=== PATIENT | male | born 1935 | race Asian ===

== ENCOUNTER 2019-11-03 13:34 | Inpatient (IN) | payer OTHER, MEDICAID, SELFPAY ==
[~2019-11-03] VITALS: Ht 162.6 cm; Wt 48.1 kg
[2019-11-03 13:38] VITALS: BP 109/56
--- NOTE | 2019-11-03 13:58 | NUR ---
DR SAPP AT BEDSIDE EXAMINING PT
--- NOTE | 2019-11-03 14:00 | NUR ---
PT BIBA FROM [facility] FOR LOW HEMOGLOBIN. PER EMS HEMOGLOBIN WAS 6.1 WHEN BLOOD WAS DRAWN. PER FACILITY PT IS RECEIVING ZOSYN FOR INCREASED WBC DUE TO UTI. PT PRESENTS CONTRACTED. AFEBRILE UPON ARRIVAL. SKIN WARM, DRY, INTACT. AWAKE, NONVERBAL. PT IS TRACH TO T-BAR ON 6L OXYGEN. RR EVEN AND UNLABORED. POSITIONED FOR COMFORT, X 2 SIDE RAILS RAISED. PLACED ON HOME CARE ATTENDANT, PULSE OX, AND BP CUFF.
[2019-11-03] MEDS ORDERED: METO25TE2 GT ×2 (14:01→22:31)
[2019-11-03] MEDS ORDERED: AMLO10TA GT (14:01)
[2019-11-03] MEDS ORDERED: CLON-553 GT (14:01)
[2019-11-03] MEDS ORDERED: CLON0.2T16 PO (14:01)
[2019-11-03] MEDS ORDERED: ATOR40TA GT (14:01)
[2019-11-03] MEDS ORDERED: HUM SUBQ (14:01)
[2019-11-03] MEDS ORDERED: HEPA500056 SQ (14:01)
[2019-11-03] MEDS ORDERED: LANS15EC28 GT (14:01)
[2019-11-03] MEDS ORDERED: CYCL0.052 BOTH EYES (14:01)
[2019-11-03] MEDS ORDERED: MEMA10TA GT (14:01)
[2019-11-03] MEDS ORDERED: KEP500L PO (14:01)
[2019-11-03] MEDS ORDERED: LEVE1000 GT (14:01)
[2019-11-03] MEDS ORDERED: TAMS0.4C96 GT (14:01)
--- NOTE | 2019-11-03 14:01 | NUR ---
PT TRACH IS SECURED AND INTACT. SET UP COOL AEROSOL 30% 6L. PT IS TOLERATING WELL.
--- NOTE | 2019-11-03 14:05 | NUR ---
URINARY PITT PLACED, 300CC URINE OUTPUT. URINE COLLECTED AND SENT TO LAB.
--- NOTE | 2019-11-03 14:15 | NUR ---
20G IV PLACED TO RT AC, LABS AND CULTURES DRAWN AT THIS TIME
--- NOTE | 2019-11-03 14:20 | NUR ---
COVID-19 SWAB COLLECTED FROM PT AND WALKED TO LAB.
[2019-11-03 14:27] LABS: BASOPHILS % (AUTO) 0.3 % (0.0-2.0); EOSINOPHILS # (AUTO) 1.3 K/uL (0-0.4); EOSINOPHILS % (AUTO) 9.2 % (0.0-4.0); LYMPHOCYTES % (AUTO) 13.7 % (20.5-51.1); MEAN CORPUSCULAR HEMOGLOBIN 26 pg (27-31); MEAN CORPUSCULAR HGB CONC 32 g/dL (33-37); MEAN CORPUSCULAR VOLUME 79.9 fL (80-94); MONOCYTES # (AUTO) 0.7 K/uL (0.8-1.0); MONOCYTES % (AUTO) 4.7 % (1.7-9.3); NEUTROPHILS # (AUTO) 10.5 K/uL (1.8-7.7); NEUTROPHILS % (AUTO) 72.1 % (42.2-75.2); PLATELET COUNT (AUTO) 499 K/uL (140-450); RED BLOOD CELL COUNT(AUTO) 2.43 MIL/uL (4.20-6.10); RED CELL DISTRIBUTION WIDTH 18.7 % (11.6-13.7); WHITE BLOOD COUNT (AUTO) 14.5 K/uL (4.8-10.8)
--- NOTE | 2019-11-03 14:33 | NUR ---
PT TO CT VIA SHAYLA
[2019-11-03 14:40] LABS: HEMATOCRIT 19.4 % (36-52); HEMOGLOBIN 6.2 g/dL (12.0-18.0)
--- NOTE | 2019-11-03 14:41 | NUR ---
HEMOGLOBIN 6.2, HEMATOCRIT 19.4-- CRITICAL LAB VALUES RECEIVED FROM LAB
--- NOTE | 2019-11-03 14:45 | NUR ---
PT RETURNED FROM CT VIA WHEELCHAIR
[2019-11-03 14:46] LABS: APPEARANCE,URINE CLEAR (CLEAR); BILIRUBIN,URINE NEGATIVE (NEGATIVE); BLOOD, URINE 2+ (NEGATIVE); COLOR,URINE YELLOW (YELLOW); LEUKOCYTE ESTERASE ,URINE TRACE (NEGATIVE); NITRITE, URINE NEGATIVE (NEGATIVE); PH,URINE 7.5 (5.0-9.0); UGLUCOSE NEGATIVE (NEGATIVE)
[2019-11-03 14:56] LABS: ANION GAP 12.3 (8-16); CARBON DIOXIDE 30.1 mmol/L (21-32); CHLORIDE 109 mmol/L (98-107); CREATININE 1.2 mg/dL (0.6-1.3); GLUCOSE 133 mg/dL (74-106); POTASSIUM 4.4 mmol/L (3.5-5.1); SODIUM SERUM 147 mmol/L (136-145); UREA NITROGEN, BLOOD 25 mg/dL (7-18)
[2019-11-03 15:00] LABS: PROTHROMBIN TIME 9.9 secs (10.8-13.4)
[2019-11-03 15:02] LABS: ALBUMIN 1.5 g/dL (3.4-5.0); ASPARTATE AMINOTRANSFERASE 122 U/L (15-37); TOTAL BILIRUBIN 0.2 mg/dL (0.0-1.0)
[2019-11-03 15:11] LABS: RBC,URINE 11-20 (MOD) /HPF (0-5)
--- NOTE | 2019-11-03 15:47 | NUR ---
SPOKE TO PTS FAMILY MEMBER-- CALL FOR UPDATES [phone]
[2019-11-03] MEDS ORDERED: DOCUSATE SODIUM 100 MG GELCAP PO PRN (15:50)
[2019-11-03] MEDS ORDERED: ACETAMINOPHEN 325 MG TAB PO PRN (15:50)
[2019-11-03] MEDS ORDERED: ONDANSETRON 4 MG/2 ML VIAL IM/IVP PRN (15:50)
[2019-11-03] MEDS ORDERED: MORPHINE SULFATE 2 MG/ML SYR IVP PRN (15:50)
[2019-11-03] MEDS ORDERED: HYDROcodone/APAP 5/325 MG 1 TAB TAB PO PRN (15:50)
--- NOTE | 2019-11-03 15:58 | NUR ---
VISIBLE RISE AND FALL OF THE CHEST. PT POSITIONED FOR COMFORT. VSS. WILL CONTINUE TO MONITOR
--- NOTE | 2019-11-03 16:10 | NUR ---
PT RESPOSITONED IN BED FOR COMFORT. VSS. WILL CONTINUE TO MONITOR
[2019-11-03 16:19] LABS: BARBITURATE, URINE NEGATIVE ng/ml (NEG <=200); BENZODIAZEPINE, URINE NEGATIVE ng/mL (NEG <=200); CANNABINOID, URINE NEGATIVE ng/mL (NEG <=50); COCAINE, URINE NEGATIVE ng/mL (NEG <=300); OPIATE, URINE NEGATIVE ng/mL (NEG <=2000); PHENCYCLIDINE SCREEN,URINE NEGATIVE ng/mL (NEG <=25)
[2019-11-03 16:32] LABS: MAGNESIUM 2.5 mg/dL (1.8-2.4); PHOSPHORUS 3.3 mg/dL (2.5-4.9); THYROID STIMULATING HORMONE 27.24 uIU/mL (0.34-3.74)
--- NOTE | 2019-11-03 16:39 | NUR ---
ATTEMPTED TO CALL SON FOR CONSENT TO RECEIVE BLOOD, BUT UNABLE TO REACH SON. WILL TRY TO CALL BACK SHORTLY.
--- NOTE | 2019-11-03 17:04 | NUR ---
Consent signed per DR BLAIR agreeing to administration of blood. Blood has been type and crossmatched. Blood sent from blood bank. Information on unit of blood checked against patient wristband at bedside by two nurses. All information matches. Patient or responsible republican informed of potential complications associated with blood transfusion. Informed of possible transfusion reaction symptoms. Aware of need to notify nurse at once of itching, shortness of breath, flushing, feeling of impending doom, or other symptoms not previously present. Vital signs taken within 5 minutes prior to initiation of transfusion. RN will remain with patient for first 15 minutes of transfusion at which time vital signs will be re-assessed.
--- NOTE | 2019-11-03 17:35 | NUR ---
PT TOLERATING BLOOD TRANSFUSION WELL. VSS. WILL CONTINUE TO MONITOR
--- NOTE | 2019-11-03 18:05 | NUR ---
BLOOD CONTINUES TO TRANSFUSE, PT TOLERATING WELL. RR EVEN AND UNLABORED. VSS. WILL CONTINUE TO MONITOR
--- NOTE | 2019-11-03 19:08 | NUR ---
REPORT GIVEN TO ELADIA KEVIN. TRANSFER OF CARE AT THIS TIME
--- NOTE | 2019-11-03 19:08 | NUR ---
RECEIVED REPORT FROM ELADIA MELISSA. WILL CONT CARE AT THIS TIME.
--- NOTE | 2019-11-03 19:13 | NUR ---
BLOOD TRANSFUSION COMPLETED , NADR NOTED . PT VSS . PT RESTING IN BED AT LOWEST POSITION, HOB ELEVATED, SIDE RAIL X2 FOR PT SAFETY.
[2019-11-03] MEDS: NACL 0.9% 1,000 ML IV SCH (19:29)
[2019-11-03 20:20] VITALS: BP 140/76
--- NOTE | 2019-11-03 20:20 | NUR ---
RECEIVED PT FROM SABINA BRAGA - PT IS FROM ER , ON T BAR CONNECTING TO O2 AT 8LPM. APHASIC - RESPONDING BY EYES OPENING TO SOUND AND TOUCH. LOW TAYE SCALE , FALL RISK , IV SITES INTACT AND PATENT , W/ G TUBE - NPO - FOR ABDL. US ABIODUN. W/ FC DRAINING CLAER U.O . SAFETY MEASURES IN PLACE . FOR 2ND UNIT OF PRBC - ONCE THE BLOOD IS AVAILABLE . HE GOT ONE UNIT AT ER - NO BT REACTION NOTED AT THIS TIME. ADMISSION ASSESSMENT DONE - MRSA SPECIMEN - SENT TO LAB . PLAN OF CARE DISCUSSED BUT POOR UNDERSTANDING DUE TO MENTAL STATUS . WILL CONT. TO MONITOR.
--- NOTE | 2019-11-03 20:22 | NUR ---
Patient will be admitted to care of DR. ARENAS. Admited to TELEMETRY. Will go to room 123A. Belongings list completed. Report to SABINA BRAGA RN.
--- NOTE | 2019-11-03 20:22 | NUR ---
endorsed nargis, historical society director to start 2nd unit of blood.
--- NOTE | 2019-11-03 22:00 | NUR ---
MADE ROUNDS . NO S/SX OF ACUTE DISTRESS NOTED AT THIS TIME . WILL CONT. TO MONITOR.
[2019-11-03] MEDS ORDERED: PUL.5N INH (22:31)
[2019-11-03] MEDS ORDERED: MIRABULK GT (22:31)
[2019-11-03] MEDS ORDERED: BUDE1AER2 IH (22:31)
[2019-11-03] MEDS ORDERED: KEP500L GT (22:31)
[2019-11-03] MEDS ORDERED: METPCK GT (22:31)
[2019-11-03] MEDS ORDERED: LANTUS SUBQ (22:31)
[2019-11-03] MEDS ORDERED: MULT-153 GT (22:31)
[2019-11-03] MEDS ORDERED: SCOP1PAT TP (22:31)
[2019-11-03] MEDS ORDERED: LEVA0.6318 INH (22:31)
[2019-11-03] MEDS ORDERED: SODI100076 GT (22:31)
[2019-11-03] MEDS ORDERED: ACET-2619 PO (22:31)
[2019-11-03] MEDS ORDERED: POLYETHYLENE GLYCOL 17 GM/PKT GT PRN (22:40)
[2019-11-03] MEDS ORDERED: PSYLLIUM 12.2 GM/PKT GT PRN (22:40)
[2019-11-03] MEDS ORDERED: MEMANTINE 10 MG TAB GT SCH (22:40)
[2019-11-03] MEDS ORDERED: TAMSULOSIN 0.4 MG CAP GT SCH (22:40)
[2019-11-03] MEDS ORDERED: levETIRAcetam 100 MG/ML ORASYR GT SCH (22:45)
--- NOTE | 2019-11-03 23:00 | NUR ---
NO BT REACTION NOTED AT THIS TIME , O2 SAT WNL . WILL CONT. TO MONITOR.
[2019-11-04] VITALS: BP 136/69
--- NOTE | 2019-11-04 | NUR ---
NO BT REACTION NOTED AT THIS TIME . WILL CONT. TO MONITOR , 02 =SAT WNL
[2019-11-04] MEDS ORDERED: cefTRIAXone 1,000 MG VIAL ONE (01:13)
--- NOTE | 2019-11-04 02:00 | NUR ---
MADE ROUNDS . NO S/SX OF ACUTE DISTRESS NOTED AT THIS TIME . NO BT REACTION NOTED - WILL CONT. TO MONITOR.
[2019-11-04 04:00] VITALS: BP 133/75
--- NOTE | 2019-11-04 04:00 | NUR ---
MADE ROUNDS , NO BT REACTION NOTED AT THIS TIME , NO S/SX OF ACUTE DISTRESS NOTED AT THIS TIME . WILL CONT. TO MONITOR.
[2019-11-04] MEDS ORDERED: metroNIDAZOLE 500 MG/NS PREMIX 100 ML IV SCH (05:00)
[2019-11-04 05:52] LABS: BASOPHILS % (AUTO) 0.3 % (0.0-2.0); EOSINOPHILS # (AUTO) 0.9 K/uL (0-0.4); HEMATOCRIT 29.1 % (36-52); HEMOGLOBIN 9.4 g/dL (12.0-18.0); LYMPHOCYTES # (AUTO) 2.3 K/uL (2.0-11.5); LYMPHOCYTES % (AUTO) 18.3 % (20.5-51.1); MEAN CORPUSCULAR HEMOGLOBIN 27 pg (27-31); MEAN CORPUSCULAR HGB CONC 32 g/dL (33-37); MEAN CORPUSCULAR VOLUME 83.7 fL (80-94); MONOCYTES # (AUTO) 0.8 K/uL (0.8-1.0); MONOCYTES % (AUTO) 6.2 % (1.7-9.3); NEUTROPHILS # (AUTO) 8.5 K/uL (1.8-7.7); NEUTROPHILS % (AUTO) 68.2 % (42.2-75.2); PLATELET COUNT (AUTO) 464 K/uL (140-450); RED BLOOD CELL COUNT(AUTO) 3.48 MIL/uL (4.20-6.10); RED CELL DISTRIBUTION WIDTH 18.1 % (11.6-13.7); WHITE BLOOD COUNT (AUTO) 12.5 K/uL (4.8-10.8)
--- NOTE | 2019-11-04 06:00 | NUR ---
MADE ROUNDS , O2 SAT WNL . NO BT REACTION NOTED , O2 SAT WNL . WILL CONT. TO MONITOR.
[2019-11-04 06:27] LABS: ANION GAP 14.3 (8-16); CARBON DIOXIDE 28.4 mmol/L (21-32); CHLORIDE 108 mmol/L (98-107); CREATININE 1.1 mg/dL (0.6-1.3); GLUCOSE 159 mg/dL (74-106); POTASSIUM 3.7 mmol/L (3.5-5.1); SODIUM SERUM 147 mmol/L (136-145); UREA NITROGEN, BLOOD 19 mg/dL (7-18)
[2019-11-04] MEDS ORDERED: LEVOTHYROXINE 0.05 MG TAB GT SCH (06:30)
[2019-11-04 06:33] LABS: CHOL/HDL RATIO 8.5 (1-4.5)
--- NOTE | 2019-11-04 07:19 | NUR ---
PT CURRENTLY ON COOL AEROSOL. 40% AT 8L. TRACH SECURED AND INTACT. NO DISTRESS NOTED AT THIS TIME. WILL CONTINUE TO MONITOR.
--- NOTE | 2019-11-04 07:20 | NUR ---
ENDORSD TO AM SHIFT - PT - STABLE .
--- NOTE | 2019-11-04 07:20 | NUR ---
RECEIVED BEDSIDE REPORT FROM NIGHTSHIFT NURSE. PT RESTING IN BED. FLACC 0. RESPIRATIONS EVEN AND UNLABORED WITH NO SOB OR RESPIRATORY DISTRESS. SKIN WARM AND DRY TO TOUCH. IV SITE IN RFA 20G AND LFA 24G IS CLEAN, DRY, AND INTACT. SAFETY MEASURES IN PLACE. WILL CONTINUE TO MONITOR
[2019-11-04 08:00] VITALS: BP 138/78
--- NOTE | 2019-11-04 08:53 | NUR ---
PATIENT HAS BEEN SCREENED AND CATEGORIZED HIGH NUTRITION RISK. PATIENT WILL BE SEEN WITHIN 1-2 DAYS OF ADMISSION. 11/04/19-11/05/[address]
[2019-11-04] MEDS: POLYVINYL ALCOHOL 1.4% OP 15 ML SOL BOTH EYES SCH ×2 (09:00→20:02)
[2019-11-04] MEDS: MULTIVITAMIN 1 TAB GT SCH (09:01)
[2019-11-04] MEDS: amLODIPine 5 MG TAB GT SCH (09:01)
[2019-11-04] MEDS: levETIRAcetam 100 MG/ML ORASYR GT SCH ×2 (09:01→20:00)
--- NOTE | 2019-11-04 09:01 | NUR ---
ADMINISTERED SCHED MED PRESCRIBED PER MD ORDER. PT TOLERATED WELL. MEDICATION EDUCATION PERFORMED. PT APHASIC AND UNABLE TO RETURN DEMONSTRATION. SAFETY MEASURES IN PLACE. WILL CONTINUE TO MONITOR
[2019-11-04] MEDS: PANTOPRAZOLE 40 MG INJ VIAL IVP SCH (09:02)
[2019-11-04] MEDS: METOPROLOL SUCCINATE 50 MG TABER PO SCH (09:02)
[2019-11-04 09:23] LABS: TRANSFERRIN 157 mg/dL (149-313)
--- NOTE | 2019-11-04 10:06 | NUR ---
SWABBED PT FOR SECOND COVID SCREENING. PT TOLERATED WELL. SPECIMEN SENT TO LAB. WILL CONTINUE TO MONITOR
--- NOTE | 2019-11-04 10:45 | NUR ---
PT TUBE FEEDS WERE HELD FOR PROCEDURE. PT HAD ABD US SO FEEDS WERE STARTED PRESCRIBED PER MD ORDER. WILL CONTINUE TO MONITOR
--- NOTE | 2019-11-04 11:15 | NUR ---
HOURLY ROUNDING. PT RESTING IN BED. FLACC 0. RESPIRATIONS EVEN AND UNLABORED WITH NO SOB OR RESPIRATORY DISTRESS. SKIN WARM AND DRY TO TOUCH. SAFETY MEASURES IN PLACE. WILL CONTINUE TO MONITOR
[2019-11-04 12:00] VITALS: BP 140/64
--- NOTE | 2019-11-04 12:45 | NUR ---
CONSENT FOR EGD OBTAINED. PT UNABLE TO SIGN FOR THEMSELVES. CALLED SON CLARK [phone] FO CONSENT. SECOND NURSE ELECTRONIC IMAGER. SAFETY MEASURES IN PLACE. WILL CONTINUE TO MONITOR
[2019-11-04] MEDS ORDERED: POTASSIUM CHLORIDE 20% 40 MEQ/15 ML UDC GT SCH (13:00)
[2019-11-04] MEDS ORDERED: FUROSEMIDE 20 MG/2 ML VIAL IVP SCH (13:00)
--- NOTE | 2019-11-04 13:07 | NUR ---
TRIED CALLING ADAM RODAS [phone] FOR CONSENT TO AUTHORIZATION OF MEDICAL RECORDS. CLARK DID NOT ANSWER. CALLED AGAIN AND LEFT VOICE MESSAGE. SAFETY MEASURES IN PLACE. WILL CONTINUE TO MONITOR
--- NOTE | 2019-11-04 13:30 | NUR ---
11/04/19 RD INITIAL ASSESSMENT COMPLETED PLEASE REFER TO NUTRITION ASSESSMENT UNDER CARE ACTIVITY FOR ESTIMATED NUTRITIONAL NEEDS. 1. WHEN MEDICALLY CLEARED CONTINUE GLUCERNA 1.2 @ 55 ML/HR X 24 HOURS -THIS WILL PROVIDE 1584 CALORIES AND 79 GM PROTEIN WHICH MEETS 100% OF ESTIMATED NUTRIENT NEEDS 2. CONTINUE FREE WATER FLUSH OF 100 ML Q6H 3. CONTINUE MULTIVITAMIN WITH VITAMIN C 4. RD TO FOLLOW-UP 2-3 DAYS, HIGH RISK WILLIAN PANIAGUA RD
--- NOTE | 2019-11-04 14:44 | NUR ---
DC PLANNIN YRS OLD MALE PATIENT WAS ADMITTED FROM [facility] WITH A DX OF GI BLEEDING AND SEVER ANEMIA. PATIENT HAS A HX OF CHRONIC RESP FAILURE , T-BAR ,SUBARACHNOID HEMORRHAGE, DM ,HTN, SEIZURE, DEMENTIA G-TUBE FEEDING . H/H 6.1/19.4. CXR SHOWED PROBABLE MODERATE INTERSTITIAL PULMONARY EDEMA. COVID TEST PENDING. CT ABD/PELVICS SHOWED QUESTIONABLE WALL THICKENING. STARTED IVF, IV ABX ROCEPHIN. BLOOD AND URINE CULTURE PENDING . PULMO AND GI DR MOORE CONSULTED. DC PLANNING TO GO BACK TO [facility]. Addendum: 11/08/19 at 1030 by Isidoro Ceron GILBERT FAXED PATIENT'S CLINICAL INFORMATION TO [facility]. GILBERT CONTACTED RITA FROM [facility]. PATIENT WILL RETURN TO ROOM 125A UNDER DR. CAROLANN PATEL. RITA STATED THAT SHE WOULD ARRANGE TRANSPORTATION AND WOULD CALL BACK WITH TRANSPORTATION TIME. GILBERT WILL FOLLOW UP. Addendum: 11/08/19 at 1056 by Isidoro Ceron RITA CONTACTED GILBERT STATING THAT SHE WOULD NOT BE ABLE TO PROVIDE TRANSPORTATION. GILBERT CONTACTED LAM FROM [employer] [phone]. GILBERT ARRANGED FOR TRANSPORTATION AT 1130. GILBERT NOTIFIED NURSE. NO FURTHER NEEDS IDENTIFIED. Addendum: 11/08/19 at 1110 by Isidoro Ceron SS GILBERT CONTACTED LAM FROM [employer] [phone] AND CANCELLED TRANSPORTATION DUE TO INSURANCE. GILBERT CONTACTED SATISH FROM [facility] [phone]. GILBERT ARRANGED FOR TRANSPORTATION TO BE FOR 1200. GILBERT INFORMED [facility] OF TRANSPORTATION TIME. NO FURTHER NEEDS IDENTIFIED.
[2019-11-04 15:12] LABS: FOLIC ACID > 20.00 ng/mL (>3.0)
[2019-11-04 16:00] VITALS: BP 137/69
--- NOTE | 2019-11-04 16:15 | NUR ---
CALLED PT SON CLARK AGAIN FOR CONSENT OF AUTHORIZATION OF MEDICAL RECORDS FOR [facility]. CLARK DID NOT ANSWER. CALLED AGAIN AND LEFT A MESSAGE. SAFETY MEASURES IN PLACE. WILL CONTINUE TO MONITOR
[2019-11-04 16:36] LABS: FERRITIN 1373 ng/mL (30 - 400)
--- NOTE | 2019-11-04 16:57 | NUR ---
PT REMAINS ON COOL AEROSOL 40% AT 8L WITH ADEQUATE AMOUNT OF STERILE WATER. SX PT, THIN YELLOW SECRETIONS. BACTERIAL FILTER CHANGED. NO DISTRESS NOTED AT THIS TIME.
[2019-11-04] MEDS: NACL 0.9% 1,000 ML IV SCH (18:13)
--- NOTE | 2019-11-04 19:00 | NUR ---
RECEIVED BEDSIDE REPORT FROM SEPHORA OPERATIONS CONSULTANT NURSE. DISCUSSED PLAN OF CARE. PT IS SLEEPING IN SEMI FOWLERS POSITION. RESPIRATIONS ARE EVEN AND UNLABORED. CHEST RISE IS SYMMETRICAL. NO SIGNS OF DISTRESS. SEIZURE PRECAUTIONS AND ASPIRATION PRECAUTIONS SIGN IS PLACED ABOVE THE BED. BED IS IN LOWEST POSITION AND CALL LIGHT IS IN REACH.
--- NOTE | 2019-11-04 19:13 | NUR ---
ENDORSED AT BEDSIDE TO NIGHTSHIFT NURSE FOR CONTINUITY OF CARE. PT IS STABLE
[2019-11-04] MEDS: LACTULOSE 20 GM/30 ML UDC ONE ×2 (19:57→20:10)
[2019-11-04 20:00] VITALS: BP 141/68
[2019-11-04] MEDS: TAMSULOSIN 0.4 MG CAP ONE ×2 (20:01→20:11)
[2019-11-04] MEDS: LACTULOSE 20 GM/30 ML UDC PO SCH (20:09)
[2019-11-04] MEDS: TAMSULOSIN 0.4 MG CAP GT SCH (20:12)
[2019-11-04] MEDS ORDERED: ATORVASTATIN 20 MG TAB GT SCH (21:00)
[2019-11-04] MEDS ORDERED: MEMANTINE 10 MG TAB GT SCH (21:00)
--- NOTE | 2019-11-04 22:00 | NUR ---
PT IS SUCTIONED AND ORAL CARE WAS PROVIDED. BREATHING IS REGULAR, EVEN, AND UNLABORED. G TUBE FEEDING IS WELL TOLERATED. PT REPOSITIONED AND SOILED LINENS WERE CHANGED AFTER VOIDING. WILL CONTINUE TO MONITOR.
[2019-11-05] VITALS: BP 142/69
--- NOTE | 2019-11-05 | NUR ---
PT WAS DISCONTINUED FROM TUBE FEEDING TO FOLLOW ORDERS OF NPO AFTER MIDNIGHT. PT IS RECEIVING EGD IN THE MORNING. COVID 19 TEST NUMBER TWO CAME BACK NEGATIVE. PT IS ON TELE MONITORING WITH SINUS TACHYCARDIA.
--- NOTE | 2019-11-05 02:00 | NUR ---
PT IS SLEEPING IN SEMI FOWLERS. RESPIRATIONS ARE EVEN AND UNLABORED. NO SIGNS OF DISTRESS AND NO SOB.
--- NOTE | 2019-11-05 03:55 | NUR ---
PT IS A&O X 1. HE IS LAYING IN HIS BED WITH NO SIGNS OF DISTRESS. CHEST RISE IS SYMMETRICAL. RESPIRATIONS ARE UNLABORED. ORAL CARE WAS PROVIDED. BED IS IN THE LOWEST POSITION WITH THE CALL LIGHT IN REACH. WILL CONTINUE TO MONITOR.
[2019-11-05 04:00] VITALS: BP 113/71
[2019-11-05 05:29] LABS: BASOPHILS # (AUTO) 0.1 K/uL (0.00-0.22); BASOPHILS % (AUTO) 0.7 % (0.0-2.0); EOSINOPHILS # (AUTO) 0.8 K/uL (0-0.4); EOSINOPHILS % (AUTO) 6.8 % (0.0-4.0); HEMATOCRIT 30.3 % (36-52); HEMOGLOBIN 9.9 g/dL (12.0-18.0); LYMPHOCYTES # (AUTO) 2.4 K/uL (2.0-11.5); LYMPHOCYTES % (AUTO) 20.5 % (20.5-51.1); MEAN CORPUSCULAR HEMOGLOBIN 28 pg (27-31); MEAN CORPUSCULAR HGB CONC 33 g/dL (33-37); MEAN CORPUSCULAR VOLUME 83.9 fL (80-94); MONOCYTES # (AUTO) 0.8 K/uL (0.8-1.0); MONOCYTES % (AUTO) 6.4 % (1.7-9.3); NEUTROPHILS # (AUTO) 7.8 K/uL (1.8-7.7); NEUTROPHILS % (AUTO) 65.6 % (42.2-75.2); PLATELET COUNT (AUTO) 466 K/uL (140-450); RED BLOOD CELL COUNT(AUTO) 3.62 MIL/uL (4.20-6.10); RED CELL DISTRIBUTION WIDTH 18.6 % (11.6-13.7); WHITE BLOOD COUNT (AUTO) 11.9 K/uL (4.8-10.8)
[2019-11-05 05:44] LABS: ANION GAP 12.2 (8-16); CARBON DIOXIDE 29.5 mmol/L (21-32); CHLORIDE 108 mmol/L (98-107); CREATININE 1.1 mg/dL (0.6-1.3); GLUCOSE 285 mg/dL (74-106); POTASSIUM 3.7 mmol/L (3.5-5.1); SODIUM SERUM 146 mmol/L (136-145); UREA NITROGEN, BLOOD 20 mg/dL (7-18)
[2019-11-05 05:47] LABS: MAGNESIUM 2.1 mg/dL (1.8-2.4); PHOSPHORUS 3.2 mg/dL (2.5-4.9)
[2019-11-05] MEDS: LEVOTHYROXINE 0.1 MG TAB GT SCH (06:30)
--- NOTE | 2019-11-05 06:51 | NUR ---
PT WILL BE ENDORSED TO THE DAY SHIFT NURSE FOR CONTINUITY OF CARE. NPO FOR EGD. SINUS RHYTHM AND G TUBE IS CLAMPED.
--- NOTE | 2019-11-05 07:11 | NUR ---
RECEIVED BEDSIDE REPORT FROM EMERGENCY VEHICLE DISPATCHER NURSE, FOR CONTINUITY OF CARE. PT IS A&OX1. RESPIRATIONS ARE EVEN AND UNLABORED, BREATHING TRACH TO TBAR @ 8 LPM. SKIN COLOR APPROPRIATE FOR ETHNICITY. LFA 20G IV IS PATENT AND INTACT. RFA 20G IV IS PATENT AND INTACT, TKO. PITT CATHETER IN PLACE. PT IS NPO PENDING EGD SCHEDULED FOR TODAY. REVIEWED PLAN OF CARE, PT IS UNABLE TO COMPREHEND. SAFETY MEASURES IN PLACE; CALL LIGHT WITHIN REACH, BED IN LOW POSITION, SIGNS POSTED. TELE MONITOR ATTACHED. WILL CONTINUE TO MONITOR.
--- NOTE | 2019-11-05 07:26 | NUR ---
SPOKE TO PT'S [id number], JORGE, WHO CALLED ON BEHALF OF THE PT'S BROTHER; FOR UPDATES, CALL: [phone].
[2019-11-05] MEDS ORDERED: fentaNYL 0.05 MG/ML VIAL ONE (08:37)
[2019-11-05] MEDS ORDERED: MIDAZOLAM 2 MG/2 ML VIAL ONE (08:37)
[2019-11-05] MEDS ORDERED: diphenhydrAMINE 50 MG/ML VIAL ONE (08:37)
[2019-11-05] MEDS ORDERED: DEXTROSE 50% 50 ML SYR IVP PRN (08:40)
--- NOTE | 2019-11-05 08:41 | NUR ---
RECEIVED A CALL FROM EMRE FROM [facility] REGARDING ORDERED HIDA SCAN. PER EMRE, A PORTABLE HYDASCAN IS RECOMMENDED BECAUSE OF THE PT'S HIGH O2 REQUIREMENT OF 8LPM, AND THE LENGTH OF THE PROCEDURE. WILL REQUEST APPROVAL FROM NURSING ADMINISTRATION FOR PORTABLE HIDA SCAN.
--- NOTE | 2019-11-05 08:50 | NUR ---
PT ESCORTED OFF UNIT VIA BED BY OR NURSE FOR EGD PROCEDURE.
--- NOTE | 2019-11-05 09:01 | NUR ---
SPOKE TO LONNY REGARDING PORTABLE HIDA SCAN. MOHAMMED AWARE OF PMI SERVICE RECOMMENDATION.
--- NOTE | 2019-11-05 09:17 | NUR ---
PT IS BACK ON UNIT FROM OR. PT IS IN STABLE CONDITION WILL MONITOR VITAL SIGNS. RT TO CONNECT PT TO 02, TO TBAR; CURRENTLY ON O2 TANK.
[2019-11-05] MEDS: PANTOPRAZOLE 40 MG INJ VIAL IVP SCH (10:59)
--- NOTE | 2019-11-05 11:00 | NUR ---
[facility] Patient: Jayy Pop : 1935 Age/Sex: 83/M Unit#: [id number] Room/Bed: 123/A User: Isidoro MISTRY Date: 11/05/19 10:57 Type: CM Discharge Plan Assessment Information Provided By JEFF PACHECO Mattress Specialist, Realtionship and Phone Number CLARK MEDINA [phone] Healthcare Power of Chief Operator Hydroformer No Does Patient Have a POLST No Identifying Problems No Social Work Triggers Is A Social Work Consult Needed No Mandate Report Filed No Explanation Of Identifying Problems PATIENT IS AN 83-YEAR-OL DMALE ADMITTED FOR GI BLEED AND SEVERE ANEMIA. PATIENT HAS PMHX OF CHRONIC RESPIRATORY FAILURE, GTUBE FEEDING, HTN, DYSPHAGIA, DM, HTN, BPH, AND ANEMIA. Admitted From Retirement Facility Retirement Facility [facility] - [phone] Pre-Admission Level Of Functioning Status Total Care Other DME: GERICHAIR Factors/Needs SNF/NH Placement Explanation And Or Other Factors Affecting/Possible DC Needs PATIENT IS USP AND ON BED HOLD. Discharge Plan Comments TENTATIVE DISCHARGE PLAN IS FOR PATIENT TO RETURN TO [facility]. DC Plan Status Initiated
[2019-11-05] MEDS: METOPROLOL SUCCINATE 50 MG TABER PO SCH (11:02)
[2019-11-05] MEDS: LACTULOSE 20 GM/30 ML UDC PO SCH ×2 (11:03→21:47)
[2019-11-05] MEDS: FUROSEMIDE 20 MG/2 ML VIAL IVP SCH (11:03)
[2019-11-05] MEDS: amLODIPine 5 MG TAB GT SCH (11:04)
[2019-11-05] MEDS: MULTIVITAMIN 1 TAB GT SCH (11:04)
[2019-11-05] MEDS: levETIRAcetam 100 MG/ML ORASYR GT SCH ×2 (11:07→21:47)
[2019-11-05] MEDS: POLYVINYL ALCOHOL 1.4% OP 15 ML SOL BOTH EYES SCH ×2 (11:08→21:48)
--- NOTE | 2019-11-05 11:09 | NUR ---
RECEIVED A CALL FROM LAB REPORTING MRSA NARES POSITIVE RESULT. WILL ENACT CONTACT PRECAUTIONS.
[2019-11-05] MEDS: POTASSIUM CHLORIDE 20% 40 MEQ/15 ML UDC GT SCH (11:11)
--- NOTE | 2019-11-05 11:19 | NUR ---
INFORMED RESIDENT OF PT'S MRSA POSITIVE RESULT. SIGN POSTED.
--- NOTE | 2019-11-05 11:27 | NUR ---
G-TUBE ASPIRATED; 0 ML RESIDUAL. SCHEDULED MEDICATIONS GIVEN VIA G-TUBE. MEDICATIONS FLUSHED BEFORE AND AFTER G-TUBE MEDICATION ADMINISTRATION. MEDICATION EDUCATION PROVIDED. PT TOLERATED PO MEDS WELL. BP: 114/82, PULSE: 110. EYE DROPS INSTILLED. NO ACUTE DISTRESS NOTED. TELE MONITOR ATTACHED. SAFETY MEASURES IN PLACE. WILL CONTINUE TO MONITOR.
[2019-11-05] MEDS: BLOOD GLUCOSE MONITORING 1 DEV DEV FS SCH ×3 (11:30→21:51)
[2019-11-05] MEDS: INSULIN LISPRO SLIDING SCALE 100 UNITS/ML VIAL SUBQ PRN ×3 (12:37→21:49)
--- NOTE | 2019-11-05 12:39 | NUR ---
BGL: 230; 4 UNITS COVERAGE GIVEN.
[2019-11-05 16:00] VITALS: BP 117/71
[2019-11-05] MEDS: NACL 0.9% 1,000 ML IV SCH (18:50)
--- NOTE | 2019-11-05 19:00 | NUR ---
IV FLUIDS HUNG, AND RUNNING PER ORDERS. SAFETY MEASURES IN PLACE. TELE MONITOR ATTACHED.
--- NOTE | 2019-11-05 19:27 | NUR ---
ENDORSED TO MANAGER OF CASE NURSE, FOR CONTINUITY OF CARE. PT IS IN STABLE CONDITION.
--- NOTE | 2019-11-05 19:28 | NUR ---
RECEIVED REPORT FROM AM SHIFT NURSE. PATIENT LYING DOWN IN BED . NO DISTRESS NOTED. ON TRACH TO T-TUBE WITH OXYGEN 8L/MIN WITH O2 SAT AT 100%. AAOX1, APHASIC, CALM, COOPERATIVE. BUE/BLE CONTRACTURES NOTED. IV SITE INTACT, PATENT, AND INFUSING IVF PER MD ORDERS. GTUBE SITE INTACT, PATENT, AND ON CONTINOUS GTUBE FEEDING PER MD ORDERS. HAS RIGHT UPPER BACK SKIN TEAR, DRESSING DRY AND INTACT. REVIEWED PLAN OF CARE WITH PATIENT. UNABLE TO COMPREHEND. SAFETY MEASURES IN PLACE, CALL LIGHT WITHIN REACH. WILL CONTINUE TO MONITOR.
[2019-11-05] MEDS: TAMSULOSIN 0.4 MG CAP GT SCH (21:47)
--- NOTE | 2019-11-05 21:51 | NUR ---
PATIENT LYING DOWN IN BED SLEEPING, AROUSABLE BY VOICE. NO DISTRESS NOTED. DENIES ANY PAIN. SCHEDULED MEDICATIONS DUE GIVEN. WILL CONTINUE TO MONITOR.
[2019-11-06] VITALS: BP 125/80
--- NOTE | 2019-11-06 00:10 | NUR ---
PATIENT LYING DOWN IN BED SLEEPING, AROUSABLE BY VOICE. NO DISTRESS NOTED. CONDITION UNCHANGED. WILL CONTINUE TO MONITOR.
--- NOTE | 2019-11-06 03:00 | NUR ---
PATIENT LYING DOWN IN BED SLEEPING, PERFORMED TRACH SUCTIONING. PATIENT TOLERATED WELL. WILL CONTINUE TO MONITOR.
[2019-11-06] MEDS: CHLORHEXADINE GLUC 2% CLOTH TP SCH (04:30)
[2019-11-06] MEDS: MUPIROCIN CA NASAL 2% 1GM TUBE NS SCH (04:30)
--- NOTE | 2019-11-06 05:05 | NUR ---
SCHEDULED MEDICATIONS DUE GIVEN. WILL CONTINUE TO MONITOR.
[2019-11-06] MEDS: LEVOTHYROXINE 0.1 MG TAB GT SCH (05:39)
--- NOTE | 2019-11-06 05:46 | NUR ---
ASSISTED JEWEL WAXER IN CLEANING AND REPOSITIONING PATIENT. SCHEDULED MEDICATIONS DUE GIVEN. WILL CONTINUE TO MONITOR.
[2019-11-06] MEDS: INSULIN LISPRO SLIDING SCALE 100 UNITS/ML VIAL SUBQ PRN ×4 (06:41→21:12)
[2019-11-06] MEDS: BLOOD GLUCOSE MONITORING 1 DEV DEV FS SCH ×4 (06:44→21:13)
[2019-11-06 06:45] LABS: BASOPHILS # (AUTO) 0.1 K/uL (0.00-0.22); BASOPHILS % (AUTO) 0.7 % (0.0-2.0); EOSINOPHILS # (AUTO) 1.1 K/uL (0-0.4); EOSINOPHILS % (AUTO) 9.7 % (0.0-4.0); HEMATOCRIT 31.7 % (36-52); HEMOGLOBIN 10.1 g/dL (12.0-18.0); LYMPHOCYTES # (AUTO) 1.6 K/uL (2.0-11.5); LYMPHOCYTES % (AUTO) 14.2 % (20.5-51.1); MEAN CORPUSCULAR HEMOGLOBIN 27 pg (27-31); MEAN CORPUSCULAR HGB CONC 32 g/dL (33-37); MEAN CORPUSCULAR VOLUME 84.7 fL (80-94); MONOCYTES # (AUTO) 0.6 K/uL (0.8-1.0); MONOCYTES % (AUTO) 5.5 % (1.7-9.3); NEUTROPHILS # (AUTO) 8.1 K/uL (1.8-7.7); NEUTROPHILS % (AUTO) 69.9 % (42.2-75.2); PLATELET COUNT (AUTO) 489 K/uL (140-450); RED BLOOD CELL COUNT(AUTO) 3.75 MIL/uL (4.20-6.10); WHITE BLOOD COUNT (AUTO) 11.6 K/uL (4.8-10.8)
--- NOTE | 2019-11-06 07:19 | NUR ---
GAVE REPORT TO AM SHIFT NURSE FOR CONTINUITY OF CARE. PATIENT IN STABLE CONDITION.
--- NOTE | 2019-11-06 07:20 | NUR ---
RECEIVED BEDSIDE SHIFT REPORT FROM LEAD CASHIER NURSE FOR CONTINUATION OF CARE.
[2019-11-06 08:00] VITALS: BP 144/70
[2019-11-06 08:37] LABS: ANION GAP 12.1 (8-16); CARBON DIOXIDE 27.4 mmol/L (21-32); CHLORIDE 109 mmol/L (98-107); CREATININE 1.3 mg/dL (0.6-1.3); GLUCOSE 290 mg/dL (74-106); POTASSIUM 3.5 mmol/L (3.5-5.1); SODIUM SERUM 145 mmol/L (136-145); UREA NITROGEN, BLOOD 19 mg/dL (7-18)
[2019-11-06 08:38] LABS: ALBUMIN 1.5 g/dL (3.4-5.0); BILIRUBIN,DIRECT 0.1 mg/dL (0.0-0.3); TOTAL BILIRUBIN 0.1 mg/dL (0.0-1.0)
[2019-11-06] MEDS ORDERED: SCOPOLAMINE 1.5 MG/72 HR PATCH TD SCH (09:00)
[2019-11-06 09:52] LABS: PHOSPHORUS 3.5 mg/dL (2.5-4.9)
--- NOTE | 2019-11-06 10:07 | NUR ---
PATIENT IS RESTING IN BED, FIO2 30%, GTUBE FEED RUNNING WELL, TOLERATING WELL. VITAL SIGNS. WILL CONTINUE TO MONITOR.
[2019-11-06] MEDS: POLYVINYL ALCOHOL 1.4% OP 15 ML SOL BOTH EYES SCH ×2 (10:37→20:58)
[2019-11-06] MEDS: LACTULOSE 20 GM/30 ML UDC PO SCH ×2 (10:40→20:59)
[2019-11-06] MEDS: levETIRAcetam 100 MG/ML ORASYR GT SCH ×2 (10:40→20:59)
[2019-11-06] MEDS: POTASSIUM CHLORIDE 20% 40 MEQ/15 ML UDC GT SCH (10:40)
[2019-11-06] MEDS: PANTOPRAZOLE 40 MG INJ VIAL IVP SCH (10:41)
[2019-11-06] MEDS: MULTIVITAMIN 1 TAB GT SCH (10:41)
[2019-11-06] MEDS: FUROSEMIDE 20 MG/2 ML VIAL IVP SCH (10:41)
[2019-11-06] MEDS: METOPROLOL SUCCINATE 50 MG TABER PO SCH (10:41)
[2019-11-06] MEDS: amLODIPine 5 MG TAB GT SCH (10:42)
--- NOTE | 2019-11-06 12:00 | NUR ---
TOLERATED MED PASS, NO SIGNS OF DISTRESS AT THIS TIME. FLACC-O. WILL CONTINUE TO MONITOR.
--- NOTE | 2019-11-06 15:17 | NUR ---
OBSERVED CHEST RISE AND FALL, O2 SAT 100%. SUCTIONED FOR 5 SECONDS, MUCUS SUCTIONED FROM ESOPHAGUS. WILL CONTINUE TO MONITOR.
[2019-11-06 16:00] VITALS: BP 135/72
[2019-11-06] MEDS: NACL 0.9% 1,000 ML IV SCH (17:46)
--- NOTE | 2019-11-06 19:25 | NUR ---
BEDSIDE SHIFT REPORT GIVEN TO BOX FABRICATOR NURSE FOR CONTINUATION OF CARE.
--- NOTE | 2019-11-06 19:26 | NUR ---
RECEIVED BEDSIDE REPORT FROM AM SHIFT NURSE. PATIENT IS LYING IN BED, LEFT SIDE LYING. NO SOB OR DISTRESS NOTED ON 6LPM VIA TRACH TO HUMIDIFIER. IV ACCESS ON RIGHT FOREARM 20 GAUGE, PATENT INTACT AND INFUSING WELL. G-TUBE IN PLACE, PATENT, INTACT AND INFUSING WELL. INITIAL ASSESSMENT DONE. HEEL PROTECTORS IN PLACE. BED IN LOW, BED LOCKED. SAFETY MEASURES IN PLACE. WILL CONTINUE TO MONITOR PATIENT. Addendum: 11/06/19 at 2030 by Brigida Benavidez RN PITT CATHETER IN PLACE. DRAINING LIGHT YELLOW URINE WELL. PATENT AND INTACT.
--- NOTE | 2019-11-06 20:47 | NUR ---
PT SLEEPING COMFORTABLY ON COOL AERO ( 6L 30% ) W/ NO SIGNS OF DISTRESS HR 93 SPO2 100% BS RHONCHI
[2019-11-06] MEDS: TAMSULOSIN 0.4 MG CAP GT SCH (20:59)
--- NOTE | 2019-11-06 22:00 | NUR ---
PATIENT CLEANED WITH RENOVATOR MACHINE OPERATOR. PATIENT NOTED WITH SKIN TEAR ON LEFT BUTTOCKS. SKIN ASSESSMENT, PICTURE TAKEN AND WOUND CARE DONE.
[2019-11-07 00:01] VITALS: BP 141/66
--- NOTE | 2019-11-07 00:01 | NUR ---
VITALS DONE. PATIENT RESTING WITH EYES CLOSED. NO SOB OR DISTRESS NOTED. WILL CONTINUE TO MONITOR PATIENT.
--- NOTE | 2019-11-07 03:13 | NUR ---
ROUNDS DONE. PATIENT RESTING WITH EYES CLOSED. VISIBLE CHEST RISE AND FALL NOTED. WILL CONTINUE TO MONITOR PATIENT.
[2019-11-07] MEDS: MUPIROCIN CA NASAL 2% 1GM TUBE NS SCH (03:36)
[2019-11-07] MEDS: CHLORHEXADINE GLUC 2% CLOTH TP SCH (03:37)
--- NOTE | 2019-11-07 04:45 | NUR ---
MORNING CARE DONE. PATIENT CLEAN, DRY AND COMFORTABLE. NO DISTRESS NOTED. WILL CONTINUE TO MONITOR PATIENT.
[2019-11-07] MEDS: LEVOTHYROXINE 0.1 MG TAB GT SCH (06:06)
[2019-11-07 06:27] LABS: BASOPHILS # (AUTO) 0.1 K/uL (0.00-0.22); BASOPHILS % (AUTO) 0.5 % (0.0-2.0); EOSINOPHILS # (AUTO) 1.1 K/uL (0-0.4); EOSINOPHILS % (AUTO) 7.9 % (0.0-4.0); HEMATOCRIT 31.8 % (36-52); HEMOGLOBIN 10.2 g/dL (12.0-18.0); LYMPHOCYTES # (AUTO) 2.1 K/uL (2.0-11.5); LYMPHOCYTES % (AUTO) 15.4 % (20.5-51.1); MEAN CORPUSCULAR HEMOGLOBIN 27 pg (27-31); MEAN CORPUSCULAR HGB CONC 32 g/dL (33-37); MEAN CORPUSCULAR VOLUME 85.1 fL (80-94); MONOCYTES # (AUTO) 0.7 K/uL (0.8-1.0); MONOCYTES % (AUTO) 5.2 % (1.7-9.3); NEUTROPHILS # (AUTO) 9.5 K/uL (1.8-7.7); PLATELET COUNT (AUTO) 496 K/uL (140-450); RED BLOOD CELL COUNT(AUTO) 3.74 MIL/uL (4.20-6.10); RED CELL DISTRIBUTION WIDTH 18.7 % (11.6-13.7); WHITE BLOOD COUNT (AUTO) 13.4 K/uL (4.8-10.8)
[2019-11-07] MEDS: BLOOD GLUCOSE MONITORING 1 DEV DEV FS SCH ×4 (06:31→21:00)
[2019-11-07] MEDS: INSULIN LISPRO SLIDING SCALE 100 UNITS/ML VIAL SUBQ PRN ×4 (06:33→23:22)
--- NOTE | 2019-11-07 06:36 | NUR ---
PATIENT HAD A BLOOD GLUCOSE OF 233 WITH 4 UNITS OF REGULAR HUMALOG INSULIN ADMINISTERED. WILL CONTINUE TO MONITOR PATIENT.
--- NOTE | 2019-11-07 06:40 | NUR ---
PATIENT IN STABLE CONDITION.. NO DISTRESS NOTED. CALL LIGHT WITHIN PATIENT REACH. WILL ENDORSE TO AM SHIFT NURSE FOR CONTINUITY OF CARE.
[2019-11-07 06:51] LABS: ANION GAP 12.3 (8-16); CARBON DIOXIDE 29.3 mmol/L (21-32); CHLORIDE 105 mmol/L (98-107); GLUCOSE 247 mg/dL (74-106); POTASSIUM 3.6 mmol/L (3.5-5.1); SODIUM SERUM 143 mmol/L (136-145); UREA NITROGEN, BLOOD 20 mg/dL (7-18)
--- NOTE | 2019-11-07 07:30 | NUR ---
RECEIVED BEDSIDE REPORT FROM OPERATIONS ASST NURSE. PATIENT IS LYING IN BED, LEFT SIDE LYING. NO SOB OR DISTRESS NOTED ON 6LPM VIA TRACH TO HUMIDIFIER. IV ACCESS ON RIGHT FOREARM 20 GAUGE, PATENT INTACT AND INFUSING WELL. L FA 24 SALINE LOCKED. G-TUBE IN PLACE, PATENT, INTACT AND INFUSING WELL. PATIENT HAS PITT CATHETER DRAINING TO GRAVITY WITH YELLOW URINE. ISOLATION PRECAUTIONS IN PLACE, HEEL PROTECTORS IN PLACE. BED IN LOW, BED LOCKED. SAFETY MEASURES IN PLACE. WILL CONTINUE TO MONITOR PATIENT.
[2019-11-07 08:00] VITALS: BP 145/68
[2019-11-07] MEDS: POTASSIUM CHLORIDE 20% 40 MEQ/15 ML UDC GT SCH (08:42)
[2019-11-07] MEDS: FUROSEMIDE 20 MG/2 ML VIAL IVP SCH (08:42)
[2019-11-07] MEDS: POLYVINYL ALCOHOL 1.4% OP 15 ML SOL BOTH EYES SCH ×2 (08:42→23:24)
[2019-11-07] MEDS: PANTOPRAZOLE 40 MG INJ VIAL IVP SCH (08:42)
[2019-11-07] MEDS: LACTULOSE 20 GM/30 ML UDC PO SCH ×2 (08:43→23:10)
[2019-11-07] MEDS: METOPROLOL SUCCINATE 50 MG TABER PO SCH (08:43)
[2019-11-07] MEDS: MULTIVITAMIN 1 TAB GT SCH (08:43)
[2019-11-07] MEDS: amLODIPine 5 MG TAB GT SCH (08:43)
[2019-11-07] MEDS: levETIRAcetam 100 MG/ML ORASYR GT SCH ×2 (08:43→23:10)
--- NOTE | 2019-11-07 08:45 | NUR ---
ORDERED MEDICATIONS GIVEN VIA GTUBE WITH 150 ML OF WATER. PATIENT TOLERATED IT. NO S/S OF SOB OR DISTRESS NOTED. PATIENT SUCTIONED WITH MINIMAL THICK SECRETIONS. WILL CONTINUE TO MONITOR PATIENT.
--- NOTE | 2019-11-07 12:36 | NUR ---
BLOOD SUGAR 242, COVERAGE GIVEN. PATIENT TOLERATED IT. PATIENT SUCTIONED WITH MINIMAL THICK SECRETIONS. WILL CONTINUE TO MONITOR PATIENT.
--- NOTE | 2019-11-07 14:33 | NUR ---
11/07/19 RD FOLLOW UP COMPLETED PLEASE REFER TO NUTRITION ASSESSMENT UNDER CARE ACTIVITY FOR ESTIMATED NUTRITIONAL NEEDS. 1. CONTINUE GLUCERNA 1.2 @ 55 ML/HR X 24 HOURS -THIS WILL PROVIDE 1584 CALORIES AND 79 GM PROTEIN WHICH MEETS 100% OF ESTIMATED NUTRIENT NEEDS 2. CONTINUE FREE WATER FLUSH OF 100 ML Q6H 3. CONTINUE MULTIVITAMIN WITH VITAMIN C 4. RD TO FOLLOW-UP 2-3 DAYS, HIGH RISK SONY SAHA, MEE
[2019-11-07 16:00] VITALS: BP 138/68
--- NOTE | 2019-11-07 17:21 | NUR ---
BLOOD SUGAR 268, COVERAGE GIVEN. PATIENT TOLERATED IT. NO COMPLAINTS AT THIS TIME. RESPIRATIONS EVEN AND UNLABORED. WILL CONTINUE TO MONITOR PATIENT.
--- NOTE | 2019-11-07 17:45 | NUR ---
PATIENT SUCTIONED AND ORAL CARE GIVEN. NEW TUBE FEEDING STARTED. PATIENT TOLERATING IT WELL. WILL CONTINUE TO MONITOR PATIENT.
[2019-11-07] MEDS: NACL 0.9% 1,000 ML IV SCH (18:50)
--- NOTE | 2019-11-07 19:25 | NUR ---
REPORT GIVEN TO SUPERVISOR BUFFING AND PASTING NURSE AT BEDSIDE FOR CONTINUITY OF CARE. PATIENT RESTING WITH EYES CLOSED. NO S/S OF DISTRESS OR SOB NOTED.
--- NOTE | 2019-11-07 19:26 | NUR ---
RECD. RESTING IN BED, SLEEPING BUT OCCASIONALLY OPENS EYES WHEN AWAKEN THEN WENT BACK TO SLEEP AGAIN. ON 02 AT 6 LITERS CONNECTED TO TRACH VIA T-BAR. 02 SAT - 99%. WITH BILATERAL UPPER AND LOWER EXTREMITIES CONTRACTED. GT FEEDING OF GLUCERNA AT 55 ML/HR INFUSING, IV OF NS AT TKO INFUSING AT 10 ML/HR. F/C PATENT DRAINING CLEAR YELLOW URINE. WITH BILALTERAL HEEL PROTECTORS IN PLACED. ORIENTED TO HOSPITAL SETTING. NO APPEARANCE OF PAIN NOTED 0/10.
--- NOTE | 2019-11-07 20:48 | NUR ---
WATER CHANGED OUT PT SLEEPING COMFORTABLY W/ NO SIGNS OF DISTRESS SPO2 100% HR 92 COOL AERO 6L 30%
--- NOTE | 2019-11-07 21:30 | NUR ---
RESIDUAL CHECKED - 0, TOLERATING FEEDING WELL.
[2019-11-07] MEDS: TAMSULOSIN 0.4 MG CAP GT SCH (23:10)
[2019-11-07] MEDS: SULFAMETH/TRIMETH DS 800/160MG 1 TAB PO SCH (23:11)
[2019-11-08] VITALS: BP 145/68
--- NOTE | 2019-11-08 | NUR ---
SLEEPING COMFORTABLY IN BED, SUCTIONING DONE X3.
[2019-11-08] MEDS: CHLORHEXADINE GLUC 2% CLOTH TP SCH (05:02)
[2019-11-08] MEDS: MUPIROCIN CA NASAL 2% 1GM TUBE NS SCH (05:02)
[2019-11-08] MEDS: BLOOD GLUCOSE MONITORING 1 DEV DEV FS SCH (06:18)
[2019-11-08] MEDS: LEVOTHYROXINE 0.1 MG TAB GT SCH (06:18)
[2019-11-08] MEDS: INSULIN LISPRO SLIDING SCALE 100 UNITS/ML VIAL SUBQ PRN (06:22)
[2019-11-08 06:45] LABS: BASOPHILS # (AUTO) 0.1 K/uL (0.00-0.22); BASOPHILS % (AUTO) 0.7 % (0.0-2.0); EOSINOPHILS # (AUTO) 0.8 K/uL (0-0.4); EOSINOPHILS % (AUTO) 6.5 % (0.0-4.0); HEMOGLOBIN 10.8 g/dL (12.0-18.0); LYMPHOCYTES # (AUTO) 3.1 K/uL (2.0-11.5); LYMPHOCYTES % (AUTO) 25.5 % (20.5-51.1); MEAN CORPUSCULAR HEMOGLOBIN 28 pg (27-31); MEAN CORPUSCULAR HGB CONC 33 g/dL (33-37); MEAN CORPUSCULAR VOLUME 84.7 fL (80-94); MONOCYTES # (AUTO) 0.9 K/uL (0.8-1.0); MONOCYTES % (AUTO) 7.3 % (1.7-9.3); NEUTROPHILS # (AUTO) 7.2 K/uL (1.8-7.7); PLATELET COUNT (AUTO) 536 K/uL (140-450); RED BLOOD CELL COUNT(AUTO) 3.89 MIL/uL (4.20-6.10); RED CELL DISTRIBUTION WIDTH 19.1 % (11.6-13.7); WHITE BLOOD COUNT (AUTO) 12.1 K/uL (4.8-10.8)
--- NOTE | 2019-11-08 07:00 | NUR ---
CONDITION REMAIN STABLE. SUCTIONED X 1 MODERATE PHLEGM.WILL ENDORSE TO AM SHIFT NURSE FOR CONTINUITY OF CARE.
[2019-11-08 07:02] LABS: ANION GAP 13.8 (8-16); CARBON DIOXIDE 28.9 mmol/L (21-32); CHLORIDE 105 mmol/L (98-107); CREATININE 1.1 mg/dL (0.6-1.3); GLUCOSE 273 mg/dL (74-106); POTASSIUM 3.7 mmol/L (3.5-5.1); SODIUM SERUM 144 mmol/L (136-145); UREA NITROGEN, BLOOD 21 mg/dL (7-18)
[2019-11-08] MEDS: POLYVINYL ALCOHOL 1.4% OP 15 ML SOL BOTH EYES SCH (08:28)
--- NOTE | 2019-11-08 08:29 | NUR ---
MED SCANNER NOT WORKING REPORTED TO IT,
--- NOTE | 2019-11-08 08:30 | NUR ---
RECEIVED REPORT FROM ELADIA EPPS FOR CONTINUITY OF CARE. PATIENT ALERT AWAKE, APHASIC NOT IN ANY DISTRESS NOTED. VITALS STABLE. ON TRACH TO T-PIECE SATURATION 100%, ON 6L.DUE MEDICATIONS GIVEN AND TOLERATED WELL. WILL CONTINUE TO MONITOR.
[2019-11-08] MEDS: levETIRAcetam 100 MG/ML ORASYR GT SCH (08:31)
[2019-11-08] MEDS: POTASSIUM CHLORIDE 20% 40 MEQ/15 ML UDC GT SCH (08:33)
[2019-11-08] MEDS: MULTIVITAMIN 1 TAB GT SCH (08:34)
[2019-11-08] MEDS: SULFAMETH/TRIMETH DS 800/160MG 1 TAB PO SCH (08:34)
[2019-11-08] MEDS: PANTOPRAZOLE 40 MG INJ VIAL IVP SCH (08:34)
[2019-11-08] MEDS: LACTULOSE 20 GM/30 ML UDC PO SCH (08:35)
[2019-11-08] MEDS: METOPROLOL SUCCINATE 50 MG TABER PO SCH (08:39)
[2019-11-08] MEDS: FUROSEMIDE 20 MG/2 ML VIAL IVP SCH (08:40)
[2019-11-08] MEDS: amLODIPine 5 MG TAB GT SCH (08:50)
[2019-11-08 08:56] VITALS: BP 137/66
--- NOTE | 2019-11-08 09:04 | NUR ---
pT EYES CLOSE ON TRACH TO O2 30 PERCENT WELL TOLERATED, NO SOB NOTED, SKIN WARM TO TOUCH RESP. EVEN AND UNLABORED, GT INTACT NO RESIDUAL NOTED, HOB UP IV SITE ON RIGHT FOREARM , INTACT, PITT CATH DRAINING TO A KA[place]LYNN URINE.
--- NOTE | 2019-11-08 10:27 | NUR ---
WITH D/C ORDER BACK TO [facility], NOTIFIED ADAM RODAS REGARDING PLAN FOR TODAY DISCHARGE. WILL FOLLOW UP WITH INFRASTRUCTURE PROJECT MANAGER.
--- NOTE | 2019-11-08 10:37 | NUR ---
RECEIVED ON A COOL AEROSOL ON AND FUCTIONING WELL AT 30%/6 LPM TO A PORTEX DCT #7 AIRWAY SECURED WITH A TRACH TIE RESTING WEILL WITHOUT SOB NOTED GOOD CHEST RISE DEEP TRACHEAL SUCTION FOR LARGE THICK LEE SECRETIONS AIRWAY PATENT CHANGED AEROSOL WATER, HUMIDIFIER BARREL AND INLINE SUCTION CATHETER Addendum: 11/08/19 at 1056 by Carlos Drew RT SATURATION 98% ON FIO2 OF 30% TITRATED FIO2 TO 30%
[2019-11-08] MEDS ORDERED: MUPI2CRE22 NS (10:48)
[2019-11-08] MEDS ORDERED: SULF-47 PO (10:48)
[2019-11-08] MEDS ORDERED: SYN.1 GT (10:48)
[2019-11-08] MEDS ORDERED: CHLO118S2 TP (10:48)
[2019-11-08] MEDS ORDERED: SULF-47 GT (10:52)
--- NOTE | 2019-11-08 10:55 | NUR ---
WOUND CARE EVALUATION NOTE: REASON FOR EVALUATION: LOW TAYE SCALE AND OPEN WOUNDS WOUND ASSESSMENT DONE ON THIS 84 Y/O MALE PATIENT ADMITTED TO [facility] FROM [facility] WITH INITIAL DIAGNOSIS OF ABNORMAL LABS. PAST MEDICAL HISTORY INCLUDE CHRONIC RESP FAILURE, SUBARACHNOID HEMORRHAGE, DM, HTN, ANEMIA, SEIZURE AND DEMENTIA. ALL ABOVE INFORMATION WAS OBTAINED FROM THE ADMISSION H&P. PATIENT WITH UPPER AND LOWER EXTREMITIES CONTRACTED, MULTIPLE HEALED SCARS TO SACRAL AND BUTTOCKS AREAS.SKIN WARM TO TOUCH,TOENAILS ARE SHORT AND THICKENED, NO HAIR GROWTH, PT IS INCONTINENT OF BOWEL DURING ASSESSMENT. PLAN OF CARE DISCUSSED WITH PRIMARY RN INTEGUMENTARY: -TRACH AND GT SITES NELIDA-STOMA SKIN DRY AND INTACT -INCONTINENT ASSOCIATE DERMATITIS TO LEFT BUTTOCK SITE #1 1X0.5CM, SUPERFICIAL DEPTH, AND SITE #2 2X2.5CM SUPERFICIAL DEPTH WOUND BED RED, NO ODOR. NELIDA-WOUND SKIN INTACT WITH HEALED SCARS. -RIGHT UPPER LATERAL BACK SKIN TEAR PARTIAL THICKNESS SKIN LOSS, SITE #1 1X1.3CM SUPERFICIAL DEPTH, SITE # 2 2.7X3 CM SUPERFICIAL DEPTH, WOUND BED ARE 100% GRANULATING TISSUE MOIST. NO ODOR, NELIDA-WOUND SKIN INTACT, VERSATEL IN PLACE AND REINFORCED -RIGHT BUTTOCK 1X1CM SERUM FILLED BLISTER SKIN INTACT, NELIDA WOUND SKIN INTACT -SACRALCOCCYX, LEFT AND RIGHT HEELS BLANCHABLE REDNESS, SKIN INTACT RECOMMENDATIONS: -CLEANSE LEFT BUTTOCK IAD WITH SOAP AND WATER, PAT DRY, APPLY Z-GUARD AND COVER WITH FOAM DRESSING QD AND PRN IF SOILING -CLEANSE RIGHT UPPER BACK SKIN TEARS, RIGHT BUTTOCK BLISTER WITH NS. PAT DRY, APPLY VERSATEL DRESSING AND CHANGE Q5 DAYS AND PRN IF SOILING, MONITOR DRESSING PLACEMENT Q SHIFT -APPLY FOAM DRESSING TO BILATERAL SHINS /KNEES AND HEELS QD PREVENTION -TURN AND REPOSITION PATIENT Q 2H, KEEP SKIN DRY AND CLEAN -ASSESS AND MONITOR SKIN CONDITION DURING POSITION CHANGE -OFFLOAD BILATERAL HEELS BY PLACING PILLOWS UNDER CALVES AT ALL TIMES, UNLESS OTHERWISE CONTRAINDICATED -PRESSURE REDISTRIBUTION SURFACE THERAPY -CONTINUE TO FOLLOW RD RECOMMENDATION RECOMMENDATIONS DISCUSSED WITH PRIMARY RN WILL FOLLOW UP PATIENT Q7- 10 DAYS AND PRN. PLEASE CONTACT WOUND CARE NURSE FOR ANY CONCERNS, QUESTIONS AND CHANGES IN SKIN CONDITION.
[2019-11-08] MEDS ORDERED: Z-GUARD PASTE TP PRN (11:15)
--- NOTE | 2019-11-08 12:00 | NUR ---
REPORT GIVEN TO ELADIA PRIETO AT [facility] [place], ALL QUESTIONED ANSWER. WILL CONTINUE TO MONITOR.
--- NOTE | 2019-11-08 12:20 | NUR ---
DISCHARGE VIA [facility]. REPORT GIVEN AT BEDSIDE, IN STABLE CONDITION.
[2019-11-08] MEDS ORDERED: Z-GUARD PASTE TP SCH (13:00)
[2019-11-08] MEDS ORDERED: FOAM DRESSING TP SCH (13:00)
== END 2019-11-08 12:15 | DRG 177 ==
LOC: MED 13:34 → EEVIPCON 13:34 → UNDOADMIN 15:48 → MTU 15:48
PROVIDERS: ADMIT General Practice; ATTEND General Practice
PROC: 30233N1 Transfusion of Nonautologous Red Blood Cells into Peripheral Vein, Percutaneous Approach (ICD-10-PCS; principal; 2019-11-03)
PROC: 0DJ08ZZ Inspection of Upper Intestinal Tract, Via Natural or Artificial Opening Endoscopic (ICD-10-PCS; 2019-11-05)
DX: J69.0 Pneumonitis due to inhalation of food and vomit (principal); E43 Unspecified severe protein-calorie malnutrition; J96.21 Acute and chronic respiratory failure with hypoxia; I50.43 Acute on chronic combined systolic (congestive) and diastolic (congestive) heart failure; N39.0 Urinary tract infection, site not specified; Z68.1 Body mass index [BMI] 19.9 or less, adult; K92.2 Gastrointestinal hemorrhage, unspecified; E87.0 Hyperosmolality and hypernatremia; G93.40 Encephalopathy, unspecified; Z20.828 Contact with and (suspected) exposure to other viral communicable diseases; E11.9 Type 2 diabetes mellitus without complications; N40.0 Benign prostatic hyperplasia without lower urinary tract symptoms; K21.9 Gastro-esophageal reflux disease without esophagitis; R13.10 Dysphagia, unspecified; K80.80 Other cholelithiasis without obstruction; G40.909 Epilepsy, unspecified, not intractable, without status epilepticus; F03.90 Unspecified dementia, unspecified severity, without behavioral disturbance, psychotic disturbance, mood disturbance, and anxiety; E78.5 Hyperlipidemia, unspecified; D50.0 Iron deficiency anemia secondary to blood loss (chronic); D47.3 Essential (hemorrhagic) thrombocythemia; E86.0 Dehydration; E83.41 Hypermagnesemia; E03.9 Hypothyroidism, unspecified; I11.0 Hypertensive heart disease with heart failure; B96.89 Other specified bacterial agents as the cause of diseases classified elsewhere; Z79.4 Long term (current) use of insulin; Z79.899 Other long term (current) drug therapy; Z93.0 Tracheostomy status; Z93.1 Gastrostomy status
CPT/HCPCS: 36415; 51702; 71045; 76705; 78445; 80048; 80053; 80076; 80305; 81001; 82272; 82607; 82728; 82746; 82948; 83036; 83540; 83605; 83690; 83735; 83880; 84100; 84439; 84443; 84484; 85025; 85045; 85610; 85730; 86886; 86900; 86901; 86920; 87040; 87070; 87081; 87086; 87186; 87205; 93005; 99291; C9113; J0696; J1200; J1815; J1940; J2250; J3010; J3490; J7030; J7060; P9016; Q0092; U0003-CS